=== PATIENT | male | born 1990 | race Hispanic/Latino ===

== ENCOUNTER 2025-07-12 15:40 | Emergency (ER) | payer OTHER, SELFPAY ==
[2025-07-12 15:41] VITALS: BP 127/89; PULSE 88; RESP 18; TEMP 36.3; O2SAT 100; BMI 24.3
[2025-07-12] MEDS: HYDROcodone Bitartrate/Apap 5/325 Tablet PO (17:01)
[2025-07-12 17:04] VITALS: BP 115/82; PULSE 64; RESP 17; O2SAT 99
--- NOTE | 2025-07-12 17:18 | CT_ITS ---
PROCEDURE: CT CHEST WITHOUT CONTRAST 07/12/2025 REASON FOR EXAM: LEFT CHEST WALL INJURY- 2 DAYS AGO TECHNIQUE: Chest CT without contrast. Coronal and Sagittal reconstruction series were provided. One or more dose reduction techniques were used (e.g., Automated exposure control, adjustment of the mA and/or kV according to patient size, use of iterative reconstruction technique RADIATION DOSE SUMMARY: CTDlvol: 6.89 mGy DLP: 210.41 mGycm COMPARISON: None. FINDINGS: LUNGS/PLEURA: Clear. No airspace consolidation or contusion. No pneumothorax or pleural effusion. The central airways are patent. MEDIASTINUM: Unremarkable. No mediastinal hematoma or lymphadenopathy. HEART: Normal in size. No pericardial effusion. No coronary artery calcifications. THORACIC AORTA: Normal in course and caliber. UPPER ABDOMEN: Unremarkable. BONES: Unremarkable. No acute fracture or dislocation. CT/Chest without Contrast IMPRESSION: No acute intrathoracic pathology. No acute fracture. Reading Location: [id number]
--- NOTE | 2025-07-12 18:00 | CM.ED ---
Social Work Date of referral: 07/12/25 Reason for referral: Trauma Referred by: Social Work Identification Patient provided consent to social work visit. Also present was patient's friend with whom patient's girlfriend lives with. Patient's friend assisted with translation. Patient works on a [employer] farm. Patient having discomfort/pain/SOB and is just waiting for test results. Dairy Husbandman offered emotional support. Patient declined any other needs/concerns. Tanesha Pan, MANAGER TRACK, DOCK WORKER
[2025-07-12 18:40] VITALS: BP 128/89; PULSE 59; RESP 13; O2SAT 97
--- NOTE | 2025-07-12 19:13 | EDS_ITS ---
HPI History of Present Illness Chief Complaint: Trauma Informant: patient and friend Limited: language barrier (Bedside honey blender use-friend) Narrative Narrative: Patient is a 34-year-old male with no significant past medical history presenting with left-sided chest pain and shortness of breath. 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 The start of a cow and the cow stepped on the left side of his chest. He was only stepped on once. He has had continued pain in his left chest that radiates to his back. Is worse with breathing. Denies any associate numbness or tingling. Denies history of any cardiac or respiratory diseases. Denies any history of any bleeding disorders. Initially took some Tylenol ibuprofen however it was not helping so he stopped it. No other complaints or concerns reported at this time. Had a day off so he finally came in for evaluation. [facility] Medical History no medical history Home Medications ?Medication ?Instructions ?Recorded ?Last Taken ?Type hydrocodone-acetaminophen 5-325mg 1 tab PO Q8H PRN robby n 3 days #10 07/12/25 Unknown Rx 5mg-325mg tabs ibuprofen 600 mg tablet 600 mg PO Q6H PRN PRN pain # 20 07/12/25 Unknown Rx TABLETS ondansetron 4 mg disintegrating 4 mg PO Q8H PRN PRN Na usea #10 tabs 07/12/25 Unknown Rx tablet Allergy/AdvReac Type Severity Reaction Status Date / Time No Known Allergies Allergy Verified 07/12/25 15:41 Family History no significant family his Surgical History no surgical history Social History Smoking Status: Never smoker ROS ROS ED Constitutional Constitutional ED: Denies chills or fever(s) Cardiovascular Cardiovascular: Reports chest pain and other Details: Left chest wall ; Denies palpitations or racing heartbeat Respiratory/Chest Respiratory/Chest: Reports dyspnea; Denies cough Gastrointestinal Gastrointestinal: Denies abdominal pain, nausea or vomiting Integumentary Denies Abrasions or rash Neurologic Neurologic: Denies paresthesias or weakness Hematologic/Lymphatic Hematologic/Lymphatic: Denies easy bleeding or easy bruising EXAM Physical Exam Const Vital Signs: 07/12/25 15:41 07/12/25 16:12 07/12/25 17:04 Temperature 97.4 F L Temperature Source Temporal Pulse Rate 88 64 Respiratory Rate 18 17 Respiratory Effort Short of Breath Respiratory Depth Normal Respiratory Pattern Normal Blood Pressure 127/89 H 115/82 H Blood Pressure Mean 101 93 Pulse Ox 100 99 Oxygen Delivery Method Room Air Room Air Room Air 07/12/25 18:40 Temperature Temperature Source Pulse Rate 59 L Respiratory Rate 13 Respiratory Effort Respiratory Depth Respiratory Pattern Blood Pressure 128/89 H Blood Pressure Mean 102 Pulse Ox 97 Oxygen Delivery Method Room Air Positive well nourished and well developed General Appearance ED: well developed and NAD HEENT atraumatic Eyes PERRL and EOMs intact bilaterally Chest Wall inspection of chest normal Chest Narrative: no chest wall crepitus. Tenderness palpation of the left anterior inferior chest wall as well as the lower anterior mid axillary region. No flail chest appreciated. No overlying chest wall ecchymosis or skin changes Resp normal respiratory effort and clear to auscultation bilaterally Cardio regular rhythm and no murmurs Rate: regular rate GI normal to inspection, nondistended, normoactive bowel sounds and non-tender Neuro oriented x3 [place] Coma Scale: document GCS findings Spontaneous Obeys Commands Oriented 15 Psych mental status grossly normal Skin no rashes or lesions noted and no wounds MDM MDM MDM Narrative Medical decision making narrative: Patient evaluated for left-sided chest pain after a cow stepped on him 2 days ago. Vital signs are normal. Differential includes rib fracture, rib contusion, pneumothorax, hemothorax and pulmonary contusion. CT of the chest is obtained which does not show any acute intrathoracic pathology including fracture or signs of contusion. No pneumothorax is seen. Patient is given Hodge as well as Zofran in the ER with improvement of symptoms. Patient be given a Lidoderm patch. Counseled on deep breathing to reduce the likelihood of developing pneumonia. We discharged home with a short course of Hodge as well as NSAIDs. Counseled using [id number] Salonpas patches. Given return precautions. Patient verbalized agreement understand this plan. Discharged home in stable condition. Radiography Diagnostic Testing: Clinical Impression(s) from Imaging Studies Chest CT 07/12/25 17:18 IMPRESSION: No acute intrathoracic pathology. No acute fracture. Reading Location: [id number] Discharge Plan Triage Chief Complaint: Trauma ED Provider: Nida Pierce Dx/Rx/DC Orders Clinical Impression: Chest wall contusion, Accident on farm Instructions: ED Chest Wall Contusion, ED Rib Contusion or Minor Fracture Prescriptions: New hydrocodone-acetaminophen 5-325 mg tablet 1 tab PO Q8H PRN (Reason: pain) 3 Days Qty: 10 0RF ibuprofen 600 mg tablet 600 mg PO Q6H PRN PRN (Reason: pain) Qty: 20 0RF ondansetron 4 mg tablet,disintegrating 4 mg PO Q8H PRN PRN (Reason: Nausea) Qty: 10 0RF Primary Care Provider: Care Physician,No Primary Referrals: Care Physician,No Primary [Primary Care Provider] - Activity Restrictions/Additional Instructions: If you find it helpful, I recommend applying [id number] Salonpas 4% exercise Lidoderm patches for pain. Use the ibuprofen 600 mg for pain. Use the Hodge (hydrocortisone with acetaminophen) as needed for breakthrough pain. Make sure you are taking deep breaths and staying active. Print Language: Andorran Disposition Disposition: Home, Self Care
[2025-07-12 19:17] VITALS: BP 107/88; PULSE 53; RESP 15; O2SAT 100
[2025-07-12] MEDS: Lidocaine 5% Patch 1 PATCH TOPICAL (19:18)
== END 2025-07-12 20:01 | disposition home or self-care (01) ==
PROVIDERS: Emergency Provider Emergency Medicine; Visit Provider Emergency Medicine
DX: S20.20XA Contusion of thorax, unspecified, initial encounter (principal); R06.02 Shortness of breath; W55.89XA Other contact with other mammals, initial encounter; Y92.79 Other farm location as the place of occurrence of the external cause
CPT/HCPCS: 71250; 99284